=== PATIENT | female | born 1980 | race Caucasian/White ===

== ENCOUNTER 2017-08-04 20:07 | Emergency (ER) | payer BC ==
[~2017-08-04] VITALS: Ht 162.6 cm; Wt 64.0 kg
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
--- NOTE | 2017-08-04 20:08 | NUR ---
ER AT BEDSIDE FOR EVAL
--- NOTE | 2017-08-04 20:58 | NUR ---
CALLED POSION CONTROL ON THE PHONE WITH DR WOMACK
[2017-08-04] MEDS ORDERED: IV NS 0.9% 1,000 ML BAG IV ONE (21:00)
[2017-08-04 21:06] LABS: APPEARANCE,URINE Clear (CLEAR); BILIRUBIN,URINE Negative (NEGATIVE); BLOOD, URINE Trace-intact Ery/uL (NEGATIVE); COLOR,URINE Yellow (YELLOW); KETONES,URINE Negative (NEGATIVE); LEUKOCYTE ESTERASE ,URINE Negative (NEGATIVE); NITRITE, URINE Negative (NEGATIVE); PROTEIN,URINE Negative (NEGATIVE); UGLUCOSE Negative (NEGATIVE); UROBILINOGEN,URINE 0.2 EU/dL (0.2)
[2017-08-04 21:09] LABS: BASOPHILS # (AUTO) 0.1 /CMM (0.0-0.2); EOSINOPHILS % (AUTO) 2.7 % (0.0-6.0); HEMATOCRIT 40 % (33-45); HEMOGLOBIN 13.7 g/dL (11.5-14.8); LYMPHOCYTES # (AUTO) 2.2 /CMM (0.8-4.8); LYMPHOCYTES % (AUTO) 27.2 % (20.0-44.0); MEAN CORPUSCULAR HGB CONC 35 g/dl (31.0-36.0); MEAN CORPUSCULAR VOLUME 89 fL (82-100); MONOCYTES # (AUTO) 0.7 /CMM (0.1-1.30); MONOCYTES % (AUTO) 8.6 % (2.0-12.0); NEUTROPHILS % (AUTO) 60.5 % (43.0-81.0); PLATELET COUNT (AUTO) 275 /CMM (150-450); RDW COEFFICIENT OF VARIATION 12.1 (11.5-15.0); RED BLOOD CELL COUNT(AUTO) 4.43 MIL/uL (4.0-5.2); WHITE BLOOD COUNT (AUTO) 8.2 K/uL (4.3-11.0)
--- NOTE | 2017-08-04 21:14 | NUR ---
EKG AT BEDSIDE
[2017-08-04 21:16] LABS: BACTERIA,URINE 1+ /HPF (None Seen); SQUAMOUS EPITHELIAL CELL,UR Moderate /HPF (None Seen); WBC,URINE NONE SEEN /HPF (0-3)
[2017-08-04 21:21] LABS: CALCIUM, SERUM 8.9 mg/dL (8.5-10.1); CARBON DIOXIDE 25 mmol/L (21-32); CHLORIDE 101 mmol/L (98-107); CREATININE 0.7 mg/dL (0.6-1.3); GLUCOSE 99 mg/dL (74-106); SODIUM SERUM 136 mmol/L (136-145); UREA NITROGEN, BLOOD 7 mg/dL (7-18)
[2017-08-04 21:27] LABS: ACETAMINOPHEN < 10 ug/ml (10-30); ALANINE AMINOTRANSFERASE 15 U/L (12-78); ALBUMIN 3.9 g/dL (3.4-5.0); ALCOHOL, BLOOD 164 mg/dL (0-0); ALKALINE PHOSPHATASE 41 U/L (46-116); ASPARTATE AMINOTRANSFERASE 13 U/L (15-37); BILIRUBIN,DIRECT 0.1 mg/dL (0.0-0.2); BILIRUBIN,TOTAL 0.4 mg/dL (0.2-1.0); SALICYLATE 4.1 mg/dL (2.8-20.0); TOTAL PROTEIN, SERUM 7.3 g/dL (6.4-8.2)
[2017-08-04 23:05] VITALS: BP 130/79
== END 2017-08-04 23:06 | disposition home or self-care (01) ==
LOC: ER 20:11
DX: T48.1X1A Poisoning by skeletal muscle relaxants [neuromuscular blocking agents], accidental (unintentional), initial encounter (principal); T39.311A Poisoning by propionic acid derivatives, accidental (unintentional), initial encounter; F32.9 Major depressive disorder, single episode, unspecified; F17.200 Nicotine dependence, unspecified, uncomplicated; Y92.89 Other specified places as the place of occurrence of the external cause
CPT/HCPCS: 36415; 80048; 80076; 80305; 80329; 81001; 84703; 85025; 93005; 99285; A4606; G0480 ×2; Z7610; 81000-TC